=== PATIENT | male | born 1980 | race Caucasian/White ===

== ENCOUNTER 2018-06-13 09:58 | Inpatient (IN) | payer OTHER, MEDICAID | END 2018-06-15 10:25 | disposition home or self-care (01) | LOC: EDH 09:58 → EDHIP 11:31 → 2CH 15:40 | DX: E11.10 Type 2 diabetes mellitus with ketoacidosis without coma (principal); N17.9 Acute kidney failure, unspecified; E83.42 Hypomagnesemia; E86.0 Dehydration; Z72.0 Tobacco use; E86.1 Hypovolemia; E87.1 Hypo-osmolality and hyponatremia; E87.6 Hypokalemia ==

== ENCOUNTER 2018-08-01 18:54 | Inpatient (IN) | payer OTHER | END 2018-08-03 12:20 | disposition home or self-care (01) | LOC: EDH 18:54 → 2BH 08-02 00:36 → EDHIP 19:55 → 3CH 08-02 18:26 | DX: E11.10 Type 2 diabetes mellitus with ketoacidosis without coma (principal); N17.9 Acute kidney failure, unspecified; E87.6 Hypokalemia; F17.210 Nicotine dependence, cigarettes, uncomplicated; E86.1 Hypovolemia; Z79.4 Long term (current) use of insulin ==

== ENCOUNTER 2018-11-15 10:03 | Emergency (ER) | payer OTHER ==
[~2018-11-15 10:03] MED LIST: ASPI-555 PO; FISH OIL; INSU100I3 SQ; INSU100V12 SQ; LINA5TAB PO; MULT-1271 PO; PRAVASTATIN PO; SERT25TA PO
[2018-11-15] MEDS ORDERED: SODIUM CHLORIDE 0.9% 1000ML 1,000 ML IV ONE ×4 (10:44→17:09)
[2018-11-15 11:00] LABS: BASOPHILS % (AUTO) 0.8 % (0.0-5.0); EOSINOPHILS % (AUTO) 2.9 % (0.0-8.0); LYMPHOCYTES % (AUTO) 35.2 % (21.0-51.0); MEAN CORPUSCULAR HEMOGLOBIN 29.9 pg (27.0-33.0); MEAN CORPUSCULAR HGB CONC 34.6 g/dL (32.0-36.0); MEAN CORPUSCULAR VOLUME 86.5 fL (79-99); MONOCYTES % (AUTO) 7.9 % (3.0-13.0); NEUTROPHILS % (AUTO) 53.2 % (40.0-77.0); NUCLEATED RED BLOOD CELLS 0.1 % (0.0-0.19); PLATELET COUNT (AUTO) 176 K/uL (130-400); RED BLOOD CELL COUNT(AUTO) 5.09 MIL/uL (4.50-6.20); RED CELL DISTRIBUTION WIDTH 13.3 % (11.0-15.5); WHITE BLOOD COUNT (AUTO) 4.9 K/uL (4.8-10.8)
[2018-11-15 11:08] LABS: POTASSIUM 4.3 mmol/L (3.5-5.1)
[2018-11-15 11:09] LABS: ABG BASE EXCESS -2.3 mmol/L (-2.0-3.0); ABG HCO3 22.1 mmol/L (21.0-28.0); ABG OXYGEN SATURATION 97.3 % (95.0-99.0); ABG PCO2 37 mmHg (35-48)
[2018-11-15 11:15] LABS: ALBUMIN 3.7 g/dL (3.5-5.0); BILIRUBIN,TOTAL 0.4 mg/dL (0.2-1.0); TOTAL PROTEIN, SERUM 6.9 g/dL (6.0-8.3)
[2018-11-15] MEDS ORDERED: INSULIN HUMULIN R 100 UNIT/ML 3ML ONE ×2 (13:12→15:46)
[2018-11-15] MEDS ORDERED: SODIUM CHLORIDE 0.9% 1000ML 1,000 ML IV SCH (14:14)
[2018-11-15 15:58] LABS: APPEARANCE,URINE Clear (CLEAR); BILIRUBIN,URINE Negative (NEGATIVE); COLOR,URINE Yellow (YELLOW); GLUCOSE, URINE (UA) >=1000 mg/dL (NEGATIVE); KETONES,URINE 40 mg/dL (NEGATIVE); LEUKOCYTE ESTERASE ,URINE Negative (NEGATIVE); NITRATE,URINE Negative (NEGATIVE); OCCULT BLOOD,URINE Negative (NEGATIVE); PH,URINE 5.5 (5.0-8.0); PROTEIN,URINE Negative (NEGATIVE); UROBILINOGEN,URINE 0.2 mg/dL (0.2-1.0)
[2018-11-15 16:05] LABS: AMPHET/METH SCREEN,URINE NEGATIVE (NEGATIVE); BARBITURATE SCREEN, URINE NEGATIVE (NEGATIVE); BENZODIAZEPINES SCREEN,URINE NEGATIVE (NEGATIVE); CANNABINOID SCREEN,URINE NEGATIVE (NEGATIVE); COCAINE SCREEN,URINE NEGATIVE (NEGATIVE); OPIATE SCREEN,URINE NEGATIVE (NEGATIVE); PHENCYCLIDINE SCREEN,URINE NEGATIVE (NEGATIVE)
[2018-11-15 18:16] LABS: CREATININE 0.7 mg/dL (0.5-1.5); POTASSIUM 3.7 mmol/L (3.5-5.1)
== END 2018-11-15 18:41 | disposition home or self-care (01) ==
LOC: EDH 10:03
DX: R10.12 Left upper quadrant pain (principal); R11.2 Nausea with vomiting, unspecified; F32.9 Major depressive disorder, single episode, unspecified; E11.9 Type 2 diabetes mellitus without complications; E78.5 Hyperlipidemia, unspecified; Z98.890 Other specified postprocedural states; Z79.4 Long term (current) use of insulin; Z72.0 Tobacco use; Z86.73 Personal history of transient ischemic attack (TIA), and cerebral infarction without residual deficits
CPT/HCPCS: 36415; 36600; 80048; 80053; 80305; 81003; 82010; 82803; 82948 ×2; 83690; 84484; 85025; 93005; 96361; 96372; 96374; 99285; J1815 ×2; J7030 ×4

== ENCOUNTER → 2019-01-03 | Outpatient (CLI) | payer OTHER | END | disposition home or self-care (01) | LOC: RAH 10:56 | PROVIDERS: ATTEND Internal Medicine Gastroenterology | DX: R11.0 Nausea (principal); R10.9 Unspecified abdominal pain | CPT/HCPCS: 78264; A9541 ==

== ENCOUNTER 2019-03-20 20:28 | Inpatient (IN) | payer MEDICARE, OTHER ==
[~2019-03-20] VITALS: Ht 180.3 cm; Wt 52.3 kg
[2019-03-20] MEDS ORDERED: SODIUM CHLORIDE 0.9% 1000ML 1,000 ML IV ONE ×2 (21:05→22:11)
[2019-03-20 21:18] LABS: APPEARANCE,URINE Clear (CLEAR); BILIRUBIN,URINE Negative (NEGATIVE); COLOR,URINE Yellow (YELLOW); GLUCOSE, URINE (UA) >=1000 mg/dL (NEGATIVE); KETONES,URINE >=160 mg/dL (NEGATIVE); LEUKOCYTE ESTERASE ,URINE Negative (NEGATIVE); NITRATE,URINE Negative (NEGATIVE); OCCULT BLOOD,URINE Negative (NEGATIVE); PROTEIN,URINE Trace mg/dL (NEGATIVE); UROBILINOGEN,URINE 0.2 mg/dL (0.2-1.0)
[2019-03-20 21:19] LABS: ABG BASE EXCESS -16.1 mmol/L (-2.0-3.0); ABG HCO3 9.2 mmol/L (21.0-28.0); ABG OXYGEN SATURATION 97.2 % (95.0-99.0); ABG PCO2 22 mmHg (35-48)
[2019-03-20 21:22] LABS: CREATININE 1.1 mg/dL (0.5-1.5); POTASSIUM 4.7 mmol/L (3.5-5.1)
[2019-03-20 21:28] LABS: AMPHET/METH SCREEN,URINE NEGATIVE (NEGATIVE); BARBITURATE SCREEN, URINE NEGATIVE (NEGATIVE); BENZODIAZEPINES SCREEN,URINE NEGATIVE (NEGATIVE); CANNABINOID SCREEN,URINE NEGATIVE (NEGATIVE); COCAINE SCREEN,URINE NEGATIVE (NEGATIVE); OPIATE SCREEN,URINE NEGATIVE (NEGATIVE); PHENCYCLIDINE SCREEN,URINE NEGATIVE (NEGATIVE)
[2019-03-20 21:29] LABS: HEMATOCRIT 44.8 % (42-54); MEAN CORPUSCULAR HGB CONC 34.3 g/dL (32.0-36.0); MEAN CORPUSCULAR VOLUME 90.3 fL (79-99); RED BLOOD CELL COUNT(AUTO) 4.96 MIL/uL (4.50-6.20); RED CELL DISTRIBUTION WIDTH 13.3 % (11.0-15.5); WHITE BLOOD COUNT (AUTO) 8.1 K/uL (4.8-10.8)
[2019-03-20 21:29] LABS: BACTERIA,URINE None Seen /HPF (None Seen); MUCUS,URINE Rare LPF (None Seen); RBC,URINE 0-1 /HPF (0-1); SQUAMOUS EPITHELIAL CELL,UR 0-2 /HPF (0-2); WBC,URINE 0-1 /HPF (0-1)
[2019-03-20 21:30] LABS: BASOPHILS % (AUTO) 0.8 % (0.0-5.0); EOSINOPHILS % (AUTO) 2.1 % (0.0-8.0); LYMPHOCYTES % (AUTO) 29.5 % (21.0-51.0); MONOCYTES % (AUTO) 11.1 % (3.0-13.0); NEUTROPHILS % (AUTO) 56.5 % (40.0-77.0); PLATELET COUNT (AUTO) 205 K/uL (130-400)
[2019-03-20 21:33] LABS: ALBUMIN 3.6 g/dL (3.5-5.0); BILIRUBIN,TOTAL 0.4 mg/dL (0.2-1.0); TOTAL PROTEIN, SERUM 7.3 g/dL (6.0-8.3)
[2019-03-20] MEDS ORDERED: INSULIN HUMULIN R 100 UNIT/ML 3ML ONE ×2 (22:13→22:54)
[2019-03-20] MEDS ORDERED: SODIUM CHLORIDE 0.9% 100 ML IV ONE (22:55)
[2019-03-20] MEDS ORDERED: DEXTROSE 5 %-0.45 % NACL 1,000 ML IV PRN ×2 (23:44)
[2019-03-20] MEDS: SODIUM CHLORIDE 0.9% 1000ML 1,000 ML IV SCH (23:44)
[2019-03-20] MEDS ORDERED: SODIUM CHLORIDE 0.9% 1000ML 1,000 ML IV SCH ×3 (23:44)
[2019-03-20] MEDS ORDERED: POTASSIUM CHLORIDE 10MEQ/100ML 100 ML IV PRN (23:45)
[2019-03-21] VITALS (13 sets, daily range): BP systolic 89–104; BP diastolic 48–78
[2019-03-21] MEDS ORDERED: SODIUM CHLORIDE 0.9% 1000ML 1,000 ML IV ONE (00:03)
[2019-03-21] MEDS: SODIUM CHLORIDE 0.9% 1000ML 1,000 ML IV SCH ×4 (04:44→21:54)
[2019-03-21 05:27] LABS: ABG BASE EXCESS -9.4 mmol/L (-2.0-3.0); ABG HCO3 15.7 mmol/L (21.0-28.0); ABG OXYGEN SATURATION 97.4 % (95.0-99.0); ABG PCO2 33 mmHg (35-48)
[2019-03-21 05:31] LABS: BASOPHILS % (AUTO) 14.1 % (0.0-5.0); EOSINOPHILS % (AUTO) 4.7 % (0.0-8.0); HEMATOCRIT 37.9 % (42-54); LYMPHOCYTES % (AUTO) 16.5 % (21.0-51.0); MEAN CORPUSCULAR HEMOGLOBIN 30.7 pg (27.0-33.0); MEAN CORPUSCULAR HGB CONC 34.4 g/dL (32.0-36.0); MEAN CORPUSCULAR VOLUME 89.4 fL (79-99); MONOCYTES % (AUTO) 6.6 % (3.0-13.0); NEUTROPHILS % (AUTO) 58.1 % (40.0-77.0); NUCLEATED RED BLOOD CELLS 0.2 % (0.0-0.19); PLATELET COUNT (AUTO) 184 K/uL (130-400); RED BLOOD CELL COUNT(AUTO) 4.23 MIL/uL (4.50-6.20); RED CELL DISTRIBUTION WIDTH 13.2 % (11.0-15.5); WHITE BLOOD COUNT (AUTO) 6.5 K/uL (4.8-10.8)
[2019-03-21 05:37] LABS: CREATININE 0.9 mg/dL (0.5-1.5); POTASSIUM 3.5 mmol/L (3.5-5.1)
[2019-03-21 05:41] LABS: ALBUMIN 2.8 g/dL (3.5-5.0); BILIRUBIN,TOTAL 0.3 mg/dL (0.2-1.0); MAGNESIUM 0.9 mg/dL (1.80-2.40); PHOSPHORUS 2.4 mg/dL (2.5-4.9); TOTAL PROTEIN, SERUM 5.7 g/dL (6.0-8.3)
[2019-03-21] MEDS ORDERED: DEXTROSE 5 %-0.45 % NACL 1,000 ML IV ONE (06:08)
[2019-03-21] MEDS ORDERED: MAGNESIUM 2GM PREMIX 50ML 50 ML IV ONE (06:47)
[2019-03-21] MEDS ORDERED: MAGNESIUM 2GM PREMIX IV PRN (07:15)
[2019-03-21] MEDS ORDERED: HYDR-3421 PO (08:31)
[2019-03-21] MEDS ORDERED: OMEG-75 PO (08:31)
[2019-03-21 09:44] LABS: MAGNESIUM 1.9 mg/dL (1.80-2.40); PHOSPHORUS 2.1 mg/dL (2.5-4.9); POTASSIUM 3.6 mmol/L (3.5-5.1)
[2019-03-21] MEDS: FAMOTIDINE/PF 20 MG/2 ML VIAL IV SCH ×2 (09:56→21:53)
[2019-03-21] MEDS: INSULIN LISPRO 100 UNIT/ML 3ML SQ SCH ×5 (12:15→21:46)
[2019-03-21] MEDS: NEUTRA-PHOS PACKET 1 EACH PO SCH ×3 (12:52→21:53)
[2019-03-21] MEDS: INSULIN GLARGINE 100 UNITS/ML 10 ML VIAL SQ SCH ×2 (13:00→21:38)
--- NOTE | 2019-03-21 15:31 | NUR ---
RD NOTIFICATION DX: DKA. HX: CVA, DEPRESSION, DM, DKA, GALLSTONES, HYPERLIPIDEMIA. DIET: NPO. BMI 16.1; CLASSIFIED UNDERWEIGHT. LBM: 03/19. PT CLAIMS TO EAT WELL AT HOME, HOWEVER DOES NOT FOLLOW ANY KIND OF DIET. HE CLAIMS TO CHECK HIS BG REGULARLY AND TAKES HIS MEDICATIONS DAILY. PO INTAKE 100% AND HAS GREAT APPETITE PRIOR TO ADMISSION. PT IS HUNGRY AND IRRITATED DURING TIME OF VISIT. HE REFUSED DM DIET AND NUTRITION EDUCATION. RD UNABLE TO PROVIDE DM EDUCATION MATERIALS. RD ENCOURAGED PT TO LET US KNOW IF HE CHANGES HIS MIND ABOUT RECEIVING DM INFORMATION. RD RECOMMENDS ADVANCE DIET TOLERATED TO CCD. PT REFUSED DM DIET AND NUTRITION EDUCATION. RD WILL CONTINUE TO MONITOR AND FOLLOW UP NEEDED. GIANCARLO ARREDONDO MS, RDN Addendum: 03/21/19 at [address] Amended: Links added.
--- NOTE | 2019-03-21 15:55 | NUR ---
DC PLAN PATIENT STATES LIVES WITH SISTER, IS INDEPENDENT, HAS A PROVIDER THAT VISITS DAILY AND HAS A CANE. PER PATIENT, FEELS SAFE TO RETURN HOME. Addendum: 03/21/19 at 1556 by JOAO JOSHUA Amended: Links added.
--- NOTE | 2019-03-21 18:16 | NUR ---
REPORT CALLED TO JOAO LONG AND PATIENT TRANSPORTED TO ROOM 319 VIA WHEELCHAIR BY CASSI ROMANO ALONG WITH PERSONAL BELONGINGS. LALITHA.
[2019-03-22] VITALS: BP 107/69
[2019-03-22 04:00] VITALS: BP 101/62
[2019-03-22 05:09] LABS: MEAN CORPUSCULAR HEMOGLOBIN 31.1 pg (27.0-33.0); MEAN CORPUSCULAR HGB CONC 35.1 g/dL (32.0-36.0); MEAN CORPUSCULAR VOLUME 88.6 fL (79-99); PLATELET COUNT (AUTO) 143 K/uL (130-400); RED BLOOD CELL COUNT(AUTO) 3.72 MIL/uL (4.50-6.20); RED CELL DISTRIBUTION WIDTH 13.1 % (11.0-15.5); WHITE BLOOD COUNT (AUTO) 5.3 K/uL (4.8-10.8)
[2019-03-22 05:31] LABS: ALBUMIN 2.5 g/dL (3.5-5.0); CREATININE 0.7 mg/dL (0.5-1.5); MAGNESIUM 2.4 mg/dL (1.80-2.40); PHOSPHORUS 2.9 mg/dL (2.5-4.9); POTASSIUM 3.2 mmol/L (3.5-5.1)
[2019-03-22] MEDS: SODIUM CHLORIDE 0.9% 1000ML 1,000 ML IV SCH (05:35)
[2019-03-22 05:47] LABS: HEMOGLOBIN A1C 14.4 % (4.0-6.0)
[2019-03-22] MEDS: POTASSIUM CHLORIDE 10MEQ/100ML 100 ML IV PRN ×2 (06:05→09:16)
[2019-03-22] MEDS: INSULIN LISPRO 100 UNIT/ML 3ML SQ SCH ×4 (06:10→11:44)
[2019-03-22 08:00] VITALS: BP 102/63
[2019-03-22] MEDS ORDERED: FAMOTIDINE 20MG TAB 20 MG TAB PO SCH (09:00)
[2019-03-22] MEDS: NEUTRA-PHOS PACKET 1 EACH PO SCH (09:15)
[2019-03-22 11:28] VITALS: BP 105/69
--- NOTE | 2019-03-22 14:05 | NUR ---
PATIENT DISCHARGED PATIENT DISCHARGED, IV DISCONTINUED, CATHLON INTACT, BLEEDING CONTROLLED, PATIENT TOLERATED WITHOUT INCIDENT.
== END 2019-03-22 14:20 | disposition home or self-care (01) | DRG 638 ==
LOC: EDH 20:28 → EDHIP 23:44 → 2BH 03-21 07:37 → 3CH 03-21 18:56
PROVIDERS: ADMIT Internal Medicine; ATTEND Internal Medicine
DX: E11.10 Type 2 diabetes mellitus with ketoacidosis without coma (principal); E87.1 Hypo-osmolality and hyponatremia; Z86.73 Personal history of transient ischemic attack (TIA), and cerebral infarction without residual deficits; E86.1 Hypovolemia; E83.39 Other disorders of phosphorus metabolism
CPT/HCPCS: 36415; 36600; 80048; 80053; 80061; 80305; 81001; 82010; 82040; 82803; 82948; 83036; 83690; 83735; 84100; 84132; 84484; 85025; 85027; 93005; 99291; G0378; J1815; J3475; J3490; J7030; J7042

== ENCOUNTER 2022-04-25 17:45 | Emergency (ER) | payer MEDICARE, OTHER ==
[~2022-04-25] VITALS: Ht 170.2 cm; Wt 68.5 kg
[~2022-04-25 17:45] MED LIST changes: -ASPI-555 PO; +ASPI-556 PO; -FISH OIL; -LINA5TAB PO; +OMEG-189 PO
[2022-04-25 17:46] VITALS: BP 104/81
== END 2022-04-25 21:18 | disposition left against medical advice (07) ==
LOC: EDH 17:45
DX: K62.89 Other specified diseases of anus and rectum (principal); Z53.21 Procedure and treatment not carried out due to patient leaving prior to being seen by health care provider

== ENCOUNTER 2023-12-15 19:25 | Emergency (ER) | payer OTHER ==
[~2023-12-15] VITALS: Ht 180.3 cm; Wt 81.6 kg
[~2023-12-15 19:25] MED LIST changes: -OMEG-189 PO; +OMEG-237 PO
[2023-12-15 20:00] LABS: POTASSIUM 4.1 mmol/L (3.5-5.1)
[2023-12-15 20:11] LABS: BASOPHILS # (AUTO) 0.04 K/uL (0.00-0.20); BASOPHILS % (AUTO) 0.6 % (0.0-5.0); EOSINOPHILS # (AUTO) 0.29 K/uL (0.00-0.70); EOSINOPHILS % (AUTO) 4.7 % (0.0-8.0); HEMATOCRIT 43.2 % (42-54); IMMATURE GRANULOCYTE ABSOLUTE 0.02 K/uL (0-1); LYMPHOCYTES # (AUTO) 1.5 K/uL (1.0-4.8); MEAN CORPUSCULAR HEMOGLOBIN 29.1 pg (27.0-33.0); MEAN CORPUSCULAR VOLUME 85.5 fL (79-99); MONOCYTES # (AUTO) 0.7 K/uL (0.1-1.0); MONOCYTES % (AUTO) 10.8 % (3.0-13.0); NEUTROPHILS # (AUTO) 3.7 K/uL (1.8-7.7); NEUTROPHILS % (AUTO) 59.6 % (40.0-77.0); PLATELET COUNT (AUTO) 201 K/uL (130-400); RED BLOOD CELL COUNT(AUTO) 5.05 MIL/uL (4.50-6.20); RED CELL DISTRIBUTION WIDTH 13.3 % (11.0-15.5); WHITE BLOOD COUNT (AUTO) 6.2 K/uL (4.8-10.8)
[2023-12-15 20:25] LABS: INR 0.98 (0.85-1.15); PROTHROMBIN TIME 10.6 SEC (9.6-11.6)
[2023-12-15 20:26] LABS: PARTIAL THROMBOPLASTIN TIME 26.1 SEC (26.3-35.5)
[2023-12-15 20:33] LABS: B-TYPE NATRIURETIC PEPTIDE 9 pg/mL (0-100)
[2023-12-15 21:14] VITALS: BP 123/98; PULSE 80; RESP 16; O2SAT 98
[2023-12-15] MEDS ORDERED: ASPI-1197 PO (21:17)
[2023-12-15] MEDS ORDERED: ATOR40TA69 PO (21:17)
[2023-12-15] MEDS: ASPIRIN 325MG EC TAB PO ONE (21:18)
[2023-12-15 21:26] LABS: APPEARANCE,URINE CLEAR (CLEAR); BILIRUBIN,URINE NEGATIVE (NEGATIVE); COLOR,URINE LIGHT-YELLOW (YELLOW); GLUCOSE, URINE (UA) >=1000 mg/dL (NEGATIVE); KETONES,URINE NEGATIVE (NEGATIVE); LEUKOCYTE ESTERASE ,URINE NEGATIVE Leu/uL (NEGATIVE); NITRATE,URINE NEGATIVE (NEGATIVE); OCCULT BLOOD,URINE NEGATIVE (NEGATIVE); PROTEIN,URINE NEGATIVE (NEGATIVE); UROBILINOGEN,URINE 0.2 mg/dL (0.2-1.0)
[2023-12-15 21:27] LABS: ADD UA MICROSCOPIC YES
[2023-12-15 21:30] LABS: AMPHET/METH SCREEN,URINE NEGATIVE (NEGATIVE); BARBITURATE SCREEN, URINE NEGATIVE (NEGATIVE); BENZODIAZEPINES SCREEN,URINE NEGATIVE (NEGATIVE); CANNABINOID SCREEN,URINE NEGATIVE (NEGATIVE); COCAINE SCREEN,URINE NEGATIVE (NEGATIVE); OPIATE SCREEN,URINE NEGATIVE (NEGATIVE); PHENCYCLIDINE SCREEN,URINE NEGATIVE (NEGATIVE)
== END 2023-12-15 21:31 | disposition home or self-care (01) ==
LOC: EDH 19:25
DX: G31.9 Degenerative disease of nervous system, unspecified (principal); G32.81 Cerebellar ataxia in diseases classified elsewhere; E11.9 Type 2 diabetes mellitus without complications; I63.9 Cerebral infarction, unspecified; G81.91 Hemiplegia, unspecified affecting right dominant side; Z86.73 Personal history of transient ischemic attack (TIA), and cerebral infarction without residual deficits; Z90.89 Acquired absence of other organs; Z79.82 Long term (current) use of aspirin; Z79.899 Other long term (current) drug therapy; Z79.4 Long term (current) use of insulin
CPT/HCPCS: 36415; 70450; 71045; 80048; 80305; 81001; 82550; 83880; 84484; 85025; 85610; 85730; 93005